=== PATIENT | female | born 1970 | race Caucasian/White ===

== ENCOUNTER → 2024-02-07 04:25 | Outpatient (CLI) | payer BC, SELFPAY ==
--- NOTE | 2024-02-07 07:30 | DI.US_ITS ---
Exam(s) US NEEDLE LOCAL OTHER WO RAD EXAM: thyroid nodule, NONTOXIC SINGLE THYROID NODULE E04.1 COMPARISON: No exams were available for comparison TECHNIQUE: Ultrasound performed using standard protocol. FINDINGS: Sonography was provided for Dr. Barnes during the performance of a thyroid biopsy. Please refer to the procedure report for complete details. DATA REPOSITORY:
--- NOTE | 2024-02-07 11:25 | PAPNONF_PTH ---
PATIENT: Karen Whitfield LOC: [facility] U#:[id number] AGE/SX: 55/F ROOM: RE02/07/[address]: Isha Luna : 1970 BED: DIS: SPEC #: [id number] RECD: 02/07/24 12:58 STATUS: DAVID HYLTNO #: [id number] ARNOLDO: 02/07/24 11:[address]: Isha Luna DEPT: [facility] Cytology RECD BY: Sharon Bocanegra ENTERED: 02/07/24 12:58 SP TYPE: RAMSES SINGH DR: Yesenia Lynn, NANCY Tissues: 1 - BODY FLUID CYTO-FINE NEEDLE ASPIRATE-[facility] Procedures: BODY FLUID CYTO-FINE NEEDLE ASPIRATE-[facility] Comments: [id number] (PATH FNA CONSULT) (REFRIGERATED)
--- NOTE | 2024-02-07 11:38 | W.PROCNOTE ---
Date of service: 02/07/24 Time of Service: 11:38 Procedure Note Date of procedure: 02/07/24 Procedure: Ultrasound-guided FNA, left thyroid nodule, pathology present Procedure Diagnosis: Left TR 5 1.1 cm thyroid nodule Procedure Indications: The patient has a left-sided TR 5 lesion with a history of breast cancer. Options were explained to the patient regarding further management. She elected to undergo the above procedure. Consent was filled out and signed prior to procedure. H&P was reviewed. There have been no changes. Procedure Description: The patient was positioned in supine position with her neck slightly extended. Ultrasound was used to localize the 1.1 x 0.8 x 0.8 cm nodule on the left of concern. The patient was then prepped and draped in appropriate fashion. 1% lidocaine with 1/100,000 epinephrine was injected into the skin and subcutaneous tissues overlying the thyroid and then a 25-gauge needle passed repeatedly into the thyroid nodule under ultrasound guidance. The specimen was then handed to pathology who verified cellular adequacy. 2 additional passes were then made for potential Afirma testing. There is no significant bleeding. The patient tolerated the procedure well. Her vital signs remained stable. She was able to ambulate afterwards without difficulty. Sterile dressing was applied over the site. She will remove the bandage in an hour. She will call with any signs of infection. She will use ibuprofen or Tylenol for any discomfort. She will call if she does not hear from me within 1 week with regard to pathology results. She had no further questions. She is comfortable with the plan.
== END ==
PROVIDERS: PCP Physician Assistant; Visit Provider Registered Nurse Maternal Newborn
DX: E04.1 Nontoxic single thyroid nodule (principal)
CPT/HCPCS: 10005; 76942; 88104